=== PATIENT | female | born 1990 | race African-American/Black ===

== ENCOUNTER 2016-10-02 14:26 | Emergency (ER) | payer BC | END 2016-10-02 15:23 | disposition home or self-care (01) | LOC: ER 14:26 | PROC: 2W3KX1Z Immobilization of Left Finger using Splint (ICD-10-PCS; principal; 2016-10-02) | DX: S69.92XA Unspecified injury of left wrist, hand and finger(s), initial encounter (principal); M54.16 Radiculopathy, lumbar region; Y09 Assault by unspecified means | CPT/HCPCS: 72100; 73130-LT; 99284 ==